=== PATIENT | male | born 1935 | race African-American/Black ===

== ENCOUNTER 2017-12-06 03:54 | Inpatient (IN) ==
[2017-12-06 04:50] LABS: Basophils # 0.1 10*3/uL (0.0-0.2); Basophils % 0.5 % (0.0-0.8); Eosinophils % 0.1 % (0.00-10.9); Hematocrit 37.6 VOL% (42.0-52.0); Hemoglobin 11.9 GM/DL (14.0-18.0); Immature Granulocytes % 0.3 %; Immature Granulocytes Absolute 0.03 #; Lymphocytes # 1.7 10*3/uL (1.4-4.0); Lymphocytes % 18.2 % (21.2-54.2); Mean Corpuscular HGB Conc 31.6 GM/DL (32-36); Mean Corpuscular Hemoglobin 24 PG (27-34); Mean Corpuscular Volume 74.2 FL (87-102); Mean Platelet Volume 12.2 FL (9.6-12.0); Monocytes # 0.9 10*3/uL (0.11-0.8); Monocytes % 9.9 % (1.7-12.7); Neutrophils # 6.5 10*3/uL (1.4-7.4); Platelet Count 231 T/CUMM (130-400); Red Blood Count 5.07 MC/CUMM (3.8-5.5); Red Cell Distribution Width 15.9 % (9.3-17.3); White Blood Count 9.2 T/CUMM (4-12)
[2017-12-06 05:17] LABS: Albumin 3.6 G/DL (3.4-5.0); Calcium 8.5 MG/DL (8.5-10.1); Osmolality,Calculated 277.5 MOS/KG (273-304); PT Patient Result 10.7 SECS; Partial Thromboplastin Time 26.6 SECS (0-40); Thyroid Stimulating Hormone 1.28 uIU/ml (0.358-3.74)
[2017-12-06 05:18] LABS: Troponin I Only 0.075 NG/ML (0.00-0.045)
[2017-12-06 05:28] LABS: Apearance,Urine Clear (Clear); Bilirubin,Urine Negative (Negative); Blood, Urine Negative (Negative); Glucose,Urine (UA) Negative (Negative); Ketones,Urine Negative (Negative); Nitrite,Urine Negative (Negative); Protein,Urine Negative; Urine Color Colorless (Yellow)
[2017-12-06 05:29] LABS: Urine Urobilinogen < 2.0 EU/DL (0.2-1.0)
[2017-12-06] MEDS ORDERED: cloNIDine 0.1 MG TABLET PO STA (06:05)
[2017-12-06] MEDS ORDERED: cloNIDine 0.1 MG TABLET ONE (06:15)
[2017-12-06] MEDS ORDERED: BISACODYL 5 MG TABLET PO PRN (06:17)
[2017-12-06] MEDS ORDERED: DOCUSATE SODIUM 100 MG CAPSULE PO PRN (06:17)
[2017-12-06] MEDS ORDERED: ZALEPLON 5 MG CAPSULE PO PRN (06:17)
[2017-12-06] MEDS ORDERED: ACETAMINOPHEN 325 MG TABLET PO PRN (06:17)
[2017-12-06] MEDS ORDERED: ONDANSETRON 4 MG/2 ML VIAL IV PRN (06:17)
[2017-12-06] MEDS ORDERED: LACTULOSE 20 GM/30 ML UDCUP PO PRN (06:17)
[2017-12-06] MEDS ORDERED: MAGNESIUM SULF RIDER 4 GM in PREMIX 1 EACH IV PRN (06:24)
[2017-12-06] MEDS ORDERED: MAGNESIUM SULF RIDER 2 GM in PREMIX 1 EACH IV PRN ×2 (06:24→14:15)
[2017-12-06] MEDS ORDERED: DILTIAZEM INJ 100 MG in SODIUM CHLORIDE 0.9% 100 ML IV SCH (06:30)
[2017-12-06 06:55] LABS: Risk Ratio 2.88; VLDL CHOLESTEROL 15.2 MG/DL
[2017-12-06] MEDS ORDERED: ENOXAPARIN 40 MG/0.4 ML SYRINGE SUBCUT SCH (07:00)
[2017-12-06] MEDS ORDERED: LABETALOL 20 MG/4 ML SYRINGE IV PRN (07:52)
[2017-12-06] MEDS: ASPIRIN CHEW 81 MG TABLET PO SCH (08:13)
[2017-12-06] MEDS: PANTOPRAZOLE 40 MG TABLET PO SCH (08:13)
[2017-12-06] MEDS: FUROSEMIDE 40 MG/4 ML VIAL IV SCH ×2 (08:13→15:57)
[2017-12-06] MEDS ORDERED: ENOXAPARIN 40 MG/0.4 ML SYRINGE SUBCUT ONE (12:12)
[2017-12-06] MEDS ORDERED: FUROSEMIDE 40 MG TABLET PO SCH (12:30)
[2017-12-06] MEDS: MAGNESIUM OXIDE 400 MG TABLET PO SCH (12:53)
[2017-12-06] MEDS: POTASSIUM CHLORIDE 20 MEQ TABLET PO SCH (12:53)
[2017-12-06] MEDS: CARVEDILOL 12.5 MG TABLET PO SCH ×2 (12:54→21:17)
[2017-12-06] MEDS: DILTIAZEM 30 MG TABLET PO SCH ×3 (12:54→21:17)
[2017-12-06] MEDS ORDERED: POTASSIUM CHLORIDE RIDER 10 MEQ in PREMIX 1 EACH IV PRN (14:15)
[2017-12-06] MEDS ORDERED: SIMVASTATIN 20 MG TABLET PO SCH (21:00)
[2017-12-06] MEDS: cloNIDine 0.1 MG TABLET PO SCH (21:17)
[2017-12-06] MEDS: ATORVASTATIN 80 MG TABLET PO SCH (21:17)
[2017-12-06] MEDS: SERTRALINE 50 MG TABLET PO SCH (21:17)
[2017-12-07 05:02] LABS: Basophils # 0.1 10*3/uL (0.0-0.2); Basophils % 0.7 % (0.0-0.8); Eosinophils # 0.1 10*3/uL (0.0-0.87); Eosinophils % 1.3 % (0.00-10.9); Hematocrit 33.4 VOL% (42.0-52.0); Hemoglobin 10.8 GM/DL (14.0-18.0); Immature Granulocytes % 0.1 %; Immature Granulocytes Absolute 0.01 #; Lymphocytes # 1.8 10*3/uL (1.4-4.0); Lymphocytes % 26.4 % (21.2-54.2); Mean Corpuscular HGB Conc 32.3 GM/DL (32-36); Mean Corpuscular Hemoglobin 24 PG (27-34); Mean Corpuscular Volume 72.6 FL (87-102); Mean Platelet Volume 11.4 FL (9.6-12.0); Monocytes # 0.8 10*3/uL (0.11-0.8); Neutrophils # 4.1 10*3/uL (1.4-7.4); Neutrophils % 59.5 % (38.7-73.9); Platelet Count 206 T/CUMM (130-400); Red Cell Distribution Width 15.9 % (9.3-17.3); White Blood Count 6.9 T/CUMM (4-12)
[2017-12-07 05:36] LABS: Calcium 8.3 MG/DL (8.5-10.1); Potassium 3.8 MMOL/L (3.5-5.1)
[2017-12-07 05:40] LABS: Albumin 2.9 G/DL (3.4-5.0); Bilirubin,Total 0.8 MG/DL (0.2-1.0); Calcium 8.2 MG/DL (8.5-10.1); Potassium 3.8 MMOL/L (3.5-5.1); Total Protein 6.1 G/DL (6.4-8.3)
[2017-12-07 05:47] LABS: Risk Ratio 3.09; VLDL CHOLESTEROL 14.6 MG/DL
[2017-12-07] MEDS ORDERED: diphenhydrAMINE CAP 50 MG CAPSULE PO ONE (07:00)
[2017-12-07] MEDS ORDERED: ENOXAPARIN 80 MG/0.8 ML SYRINGE SUBCUT ONE (07:01)
[2017-12-07] MEDS ORDERED: diphenhydrAMINE CAP 25 MG CAPSULE ONE (07:02)
[2017-12-07] MEDS: ENOXAPARIN 80 MG/0.8 ML SYRINGE SUBCUT SCH ×2 (07:05→10:04)
[2017-12-07] MEDS: DILTIAZEM CD 120 MG CAPSULE PO SCH ×2 (07:05→10:03)
[2017-12-07] MEDS: ASPIRIN CHEW 81 MG TABLET PO SCH ×2 (07:05→10:03)
[2017-12-07] MEDS: CARVEDILOL 12.5 MG TABLET PO SCH ×3 (07:05→20:55)
[2017-12-07] MEDS ORDERED: DIAZEPAM 5 MG TABLET PO ONE (07:30)
[2017-12-07] MEDS ORDERED: NITROGLYCERIN DRIP 50 MG/250 ML BOTTLE IV ONE (07:48)
[2017-12-07] MEDS ORDERED: LIDOCAINE 1% 20 ML VIAL ONE (07:48)
[2017-12-07] MEDS ORDERED: VERAPAMIL 5 MG/2 ML VIAL ONE (07:49)
[2017-12-07] MEDS ORDERED: HYDROmorphone 2 MG/1 ML VIAL ONE (07:52)
[2017-12-07] MEDS ORDERED: MIDAZOLAM 2 MG/2 ML VIAL ONE (07:52)
[2017-12-07] MEDS ORDERED: ADENOSINE 90 MG/30 ML VIAL IV ONE (08:18)
[2017-12-07] MEDS ORDERED: HYDROmorphone 2 MG/1 ML VIAL IV PRN (08:31)
[2017-12-07] MEDS ORDERED: NITROGLYCERIN SL 0.4 MG TABLET SL PRN (08:31)
[2017-12-07] MEDS: FUROSEMIDE 40 MG/4 ML VIAL IV SCH ×2 (10:02→15:52)
[2017-12-07] MEDS: MAGNESIUM OXIDE 400 MG TABLET PO SCH (10:04)
[2017-12-07] MEDS: POTASSIUM CHLORIDE 20 MEQ TABLET PO SCH (10:04)
[2017-12-07] MEDS: PANTOPRAZOLE 40 MG TABLET PO SCH (10:05)
[2017-12-07] MEDS: SERTRALINE 50 MG TABLET PO SCH (20:55)
[2017-12-07] MEDS: APIXABAN 5 MG TABLET PO SCH (20:55)
[2017-12-07] MEDS: cloNIDine 0.1 MG TABLET PO SCH (20:55)
[2017-12-07] MEDS: ATORVASTATIN 80 MG TABLET PO SCH (20:55)
[2017-12-08 06:12] LABS: Calcium 8.4 MG/DL (8.5-10.1); Magnesium 2.2 MG/DL (1.8-2.4); Osmolality,Calculated 280.3 MOS/KG (273-304); Potassium 4.1 MMOL/L (3.5-5.1)
[2017-12-08] MEDS: MAGNESIUM OXIDE 400 MG TABLET PO SCH (08:08)
[2017-12-08] MEDS: CARVEDILOL 12.5 MG TABLET PO SCH (08:08)
[2017-12-08] MEDS: DILTIAZEM CD 120 MG CAPSULE PO SCH (08:08)
[2017-12-08] MEDS: PANTOPRAZOLE 40 MG TABLET PO SCH (08:09)
[2017-12-08] MEDS: ASPIRIN CHEW 81 MG TABLET PO SCH (08:09)
[2017-12-08] MEDS: FUROSEMIDE 40 MG/4 ML VIAL IV SCH (08:09)
[2017-12-08] MEDS: APIXABAN 5 MG TABLET PO SCH (08:09)
[2017-12-08] MEDS: POTASSIUM CHLORIDE 20 MEQ TABLET PO SCH (08:09)
[2017-12-08 12:53] VITALS: BP 130/82
== END 2017-12-08 14:15 | disposition home or self-care (01) | DRG 287 ==
LOC: EDUNIT# → EDBD → N.ED 03:54 → N.EDINP 05:51 → N.TELES 06:10
PROVIDERS: ADMIT Internal Medicine; ATTEND Internal Medicine

== ENCOUNTER 2018-05-02 18:16 | Inpatient (IN) ==
[2018-05-02] MEDS ORDERED: ASPIRIN 325 MG TABLET PO STA (19:01)
[2018-05-02 20:22] LABS: Basophils # 0.1 10*3/uL (0.0-0.2); Basophils % 1.2 % (0.0-0.8); Eosinophils % 0.3 % (0.00-10.9); Hematocrit 32.5 VOL% (42.0-52.0); Hemoglobin 10.9 GM/DL (14.0-18.0); Immature Granulocytes % 0.3 %; Immature Granulocytes Absolute 0.02 #; Lymphocytes # 2.2 10*3/uL (1.4-4.0); Lymphocytes % 32.2 % (21.2-54.2); Mean Corpuscular HGB Conc 33.5 GM/DL (32-36); Mean Corpuscular Hemoglobin 24 PG (27-34); Mean Corpuscular Volume 71.1 FL (87-102); Monocytes # 0.8 10*3/uL (0.11-0.8); Monocytes % 11.3 % (1.7-12.7); NRBC # 0.03 10*3/uL; Neutrophils # 3.7 10*3/uL (1.4-7.4); Neutrophils % 54.7 % (38.7-73.9); Platelet Count 218 T/CUMM (130-400); Red Blood Count 4.57 MC/CUMM (3.8-5.5); Red Cell Distribution Width 16.9 % (9.3-17.3); White Blood Count 6.8 T/CUMM (4-12)
[2018-05-02 20:45] LABS: INR 1.4; PT Patient Result 14.7 SECS
[2018-05-02 20:46] LABS: Albumin 3.7 G/DL (3.4-5.0); Bilirubin,Total 1.5 MG/DL (0.2-1.0); Calcium 8.5 MG/DL (8.5-10.1); Potassium 4.5 MMOL/L (3.5-5.1); Total Protein 6.7 G/DL (6.4-8.3)
[2018-05-02] MEDS ORDERED: FUROSEMIDE 40 MG/4 ML VIAL IV STA (21:27)
[2018-05-02] MEDS ORDERED: METOPROLOL TARTRATE 5 MG/5 ML VIAL IV STA ×2 (21:29→22:55)
[2018-05-02] MEDS ORDERED: CARVEDILOL 3.125 MG TABLET PO STA (22:55)
[2018-05-03] MEDS ORDERED: ONDANSETRON 4 MG/2 ML VIAL IV PRN (04:24)
[2018-05-03] MEDS ORDERED: MORPHINE 4 MG/1 ML VIAL IV PRN (04:24)
[2018-05-03] MEDS ORDERED: DILTIAZEM 50 MG/10 ML VIAL IV ONE (04:24)
[2018-05-03] MEDS ORDERED: metroNIDAZOLE 500 MG/100 ML PREMIX IV ONE (04:41)
[2018-05-03] MEDS ORDERED: CIPROFLOXACIN 400 MG/200 ML PREMIX IV ONE (04:41)
[2018-05-03] MEDS ORDERED: DILTIAZEM 100 MG VIAL.ADD IV ONE (04:42)
[2018-05-03] MEDS: DILTIAZEM CD 120 MG CAPSULE PO SCH ×2 (04:57→12:25)
[2018-05-03] MEDS: metroNIDAZOLE INJ 500 MG in PREMIX 1 EACH IV SCH ×2 (05:15→19:23)
[2018-05-03] MEDS ORDERED: DILTIAZEM INJ 100 MG in SODIUM CHLORIDE 0.9% 100 ML IV SCH (05:30)
[2018-05-03] MEDS: CIPROFLOXACIN INJ 400 MG in PREMIX 1 EACH IV SCH ×2 (06:29→19:23)
[2018-05-03] MEDS ORDERED: APIXABAN 5 MG TABLET PO SCH (08:00)
[2018-05-03] MEDS ORDERED: APIXABAN 5 MG TABLET ONE (08:27)
[2018-05-03] MEDS: CARVEDILOL 12.5 MG TABLET PO SCH ×2 (08:53→21:46)
[2018-05-03] MEDS ORDERED: DOCUSATE SODIUM 100 MG CAPSULE ONE (09:14)
[2018-05-03] MEDS ORDERED: PANTOPRAZOLE 40 MG TABLET PO ONE (09:14)
[2018-05-03] MEDS: LOSARTAN 50 MG TABLET PO SCH (09:58)
[2018-05-03] MEDS: DOCUSATE SODIUM 100 MG CAPSULE PO SCH ×2 (09:58→21:46)
[2018-05-03] MEDS: PANTOPRAZOLE 40 MG TABLET PO SCH (09:58)
[2018-05-03] MEDS ORDERED: DILTIAZEM 30 MG TABLET PO ONE (10:43)
[2018-05-03] MEDS ORDERED: SODIUM CHLORIDE 0.45% 1,000 ML IV SCH (11:00)
[2018-05-03] MEDS ORDERED: MAGNESIUM OXIDE 400 MG TABLET ONE (12:24)
[2018-05-03] MEDS ORDERED: DILTIAZEM CD 120 MG CAPSULE PO ONE (12:24)
[2018-05-03] MEDS: MAGNESIUM OXIDE 400 MG TABLET PO SCH (12:25)
[2018-05-03] MEDS ORDERED: POTASSIUM CHLORIDE 20 MEQ TABLET PO ONE (15:23)
[2018-05-03] MEDS: POTASSIUM CHLORIDE 20 MEQ TABLET PO SCH (15:27)
[2018-05-03 16:51] LABS: Apearance,Urine CLEAR (Clear); Bacteria,Urine Occasional /HPF (Few); Bilirubin,Urine Negative (Negative); Blood, Urine Negative (Negative); Glucose,Urine (UA) Negative (Negative); Hyaline Casts,Urine 4 /LPF (0-3); Ketones,Urine Negative (Negative); Mucus,Urine Occasional /LPF (Occasional); Nitrite,Urine Negative (Negative); Protein,Urine Negative; RBC,Urine 1 /HPF (0-4); Sperm,Urine Occasional /HPF (Negative); Squamous Epithelial Cell,Urine Occasional /HPF (0-10); Urine Color Yellow (Yellow); Urine Specific Gravity 1.016 (1.001-1.035); Urine Urobilinogen < 2.0 EU/DL (0.2-1.0); WBC,Urine 2 /HPF (0-6)
[2018-05-03] MEDS ORDERED: PNEUMOCOCCAL VACCINE (13 VALENT) 0.5 ML SYRINGE IM ONE (17:28)
[2018-05-03] MEDS ORDERED: ATORVASTATIN 80 MG TABLET PO SCH (21:00)
[2018-05-03] MEDS: traZODone 50 MG TABLET PO SCH (21:46)
[2018-05-03] MEDS: SERTRALINE 50 MG TABLET PO SCH (21:46)
[2018-05-04 05:47] LABS: Troponin I Only 0.138 NG/ML (0.00-0.045)
[2018-05-04] MEDS: CIPROFLOXACIN INJ 400 MG in PREMIX 1 EACH IV SCH ×2 (05:48→16:48)
[2018-05-04] MEDS: metroNIDAZOLE INJ 500 MG in PREMIX 1 EACH IV SCH ×2 (05:48→18:45)
[2018-05-04 05:58] LABS: Risk Ratio 2.21; VLDL CHOLESTEROL 11.4 MG/DL
[2018-05-04] MEDS: PANTOPRAZOLE 40 MG TABLET PO SCH (09:41)
[2018-05-04] MEDS: LOSARTAN 50 MG TABLET PO SCH (09:41)
[2018-05-04] MEDS: ACETAMINOPHEN 325 MG TABLET PO PRN (09:41)
[2018-05-04] MEDS: ASPIRIN EC 81 MG TABLET PO SCH (09:42)
[2018-05-04] MEDS: CARVEDILOL 12.5 MG TABLET PO SCH ×2 (09:42→20:57)
[2018-05-04] MEDS: DOCUSATE SODIUM 100 MG CAPSULE PO SCH ×2 (09:42→20:57)
[2018-05-04] MEDS ORDERED: LACTULOSE 20 GM/30 ML UDCUP PO PRN (09:43)
[2018-05-04] MEDS: MAGNESIUM OXIDE 400 MG TABLET PO SCH (12:24)
[2018-05-04] MEDS: DILTIAZEM CD 120 MG CAPSULE PO SCH (12:24)
[2018-05-04 12:48] LABS: Basophils # 0.1 10*3/uL (0.0-0.2); Basophils % 0.9 % (0.0-0.8); Eosinophils # 0.1 10*3/uL (0.0-0.87); Eosinophils % 1.5 % (0.00-10.9); Hemoglobin 10.7 GM/DL (14.0-18.0); Immature Granulocytes % 0.2 %; Immature Granulocytes Absolute 0.01 #; Lymphocytes # 1.6 10*3/uL (1.4-4.0); Lymphocytes % 29.6 % (21.2-54.2); Mean Corpuscular HGB Conc 32.4 GM/DL (32-36); Mean Corpuscular Hemoglobin 24 PG (27-34); Mean Corpuscular Volume 73.2 FL (87-102); Monocytes # 0.8 10*3/uL (0.11-0.8); Monocytes % 15.2 % (1.7-12.7); Neutrophils # 2.8 10*3/uL (1.4-7.4); Neutrophils % 52.6 % (38.7-73.9); Platelet Count 166 T/CUMM (130-400); Red Blood Count 4.51 MC/CUMM (3.8-5.5); Red Cell Distribution Width 17.4 % (9.3-17.3); White Blood Count 5.3 T/CUMM (4-12)
[2018-05-04 13:25] LABS: Calcium 8.6 MG/DL (8.5-10.1); Osmolality,Calculated 273.7 MOS/KG (273-304); Potassium 4.6 MMOL/L (3.5-5.1)
[2018-05-04 14:10] LABS: Hepatitis A Ab IgM Quant 0.27 Index; Hepatitis A Ab IgM Result Negative (Negative); Hepatitis B Core IgM Quant 0.09 Index; Hepatitis B Core IgM Result Negative (Negative); Hepatitis B Surface Ag Quant < 0.10 Index; Hepatitis B Surface Ag Result Negative (Negative); Hepatitis C Virus Ab Quant 0.02 Index; Hepatitis C Virus Ab Result Negative (Negative)
[2018-05-04 14:50] LABS: Hypochromasia 2+
[2018-05-04 14:55] LABS: Tear Drop Cells Few
[2018-05-04 14:57] LABS: Schistocytes Few
[2018-05-04 14:58] LABS: Acanthocytes 1+; Elliptocytes Few; Platelet Estimate Normal; Poikilocytosis 2+
[2018-05-04] MEDS: POTASSIUM CHLORIDE 20 MEQ TABLET PO SCH (15:15)
[2018-05-04] MEDS: GABAPENTIN 100 MG CAPSULE PO SCH ×2 (16:28→20:57)
[2018-05-04] MEDS: SERTRALINE 50 MG TABLET PO SCH (20:57)
[2018-05-04] MEDS: traZODone 50 MG TABLET PO SCH (20:57)
[2018-05-05] MEDS: metroNIDAZOLE INJ 500 MG in PREMIX 1 EACH IV SCH (05:15)
[2018-05-05] MEDS: CIPROFLOXACIN INJ 400 MG in PREMIX 1 EACH IV SCH (05:15)
[2018-05-05 05:48] LABS: Basophils # 0.1 10*3/uL (0.0-0.2); Basophils % 1.2 % (0.0-0.8); Eosinophils # 0.1 10*3/uL (0.0-0.87); Eosinophils % 2.4 % (0.00-10.9); Hematocrit 31.5 VOL% (42.0-52.0); Hemoglobin 10.4 GM/DL (14.0-18.0); Immature Granulocytes % 0.2 %; Immature Granulocytes Absolute 0.01 #; Lymphocytes # 2.3 10*3/uL (1.4-4.0); Mean Corpuscular Hemoglobin 24 PG (27-34); Mean Corpuscular Volume 72.2 FL (87-102); Monocytes # 0.7 10*3/uL (0.11-0.8); Monocytes % 14.2 % (1.7-12.7); Neutrophils # 1.9 10*3/uL (1.4-7.4); Platelet Count 267 T/CUMM (130-400); Red Blood Count 4.36 MC/CUMM (3.8-5.5); Red Cell Distribution Width 17.2 % (9.3-17.3)
[2018-05-05 06:17] LABS: Burr Cells Slight; Calcium 8.4 MG/DL (8.5-10.1); Elliptocytes Few; Eosinophils 2 % (0-10); Hypochromasia Slight; Lymphocytes 52 % (20-55); Nucleated Red Blood Cells 1 (0-5); Osmolality,Calculated 279.3 MOS/KG (273-304); Platelet Estimate Adequate; Potassium 4.4 MMOL/L (3.5-5.1); Segmented Neutrophils 34 % (50-85); Total Cells Counted 100
[2018-05-05 06:18] LABS: Atypical Lymphocytes Few
[2018-05-05] MEDS: CARVEDILOL 12.5 MG TABLET PO SCH ×2 (07:48→20:19)
[2018-05-05] MEDS: GABAPENTIN 100 MG CAPSULE PO SCH ×3 (08:43→20:18)
[2018-05-05] MEDS: LOSARTAN 50 MG TABLET PO SCH (08:43)
[2018-05-05] MEDS: PANTOPRAZOLE 40 MG TABLET PO SCH (08:44)
[2018-05-05] MEDS: DOCUSATE SODIUM 100 MG CAPSULE PO SCH ×2 (08:44→20:18)
[2018-05-05] MEDS: ASPIRIN EC 81 MG TABLET PO SCH (08:44)
[2018-05-05] MEDS: APIXABAN 5 MG TABLET PO SCH ×2 (10:21→20:19)
[2018-05-05] MEDS: DILTIAZEM CD 120 MG CAPSULE PO SCH (11:13)
[2018-05-05] MEDS: MAGNESIUM OXIDE 400 MG TABLET PO SCH (11:13)
[2018-05-05 12:42] LABS: Hematocrit 34.2 VOL% (42.0-52.0)
[2018-05-05] MEDS: POTASSIUM CHLORIDE 20 MEQ TABLET PO SCH (15:53)
[2018-05-05] MEDS: traZODone 50 MG TABLET PO SCH (20:18)
[2018-05-05] MEDS: SERTRALINE 50 MG TABLET PO SCH (20:18)
[2018-05-06 06:14] LABS: Basophils # 0.1 10*3/uL (0.0-0.2); Basophils % 0.7 % (0.0-0.8); Eosinophils # 0.2 10*3/uL (0.0-0.87); Eosinophils % 2.2 % (0.00-10.9); Hematocrit 33.8 VOL% (42.0-52.0); Hemoglobin 11.1 GM/DL (14.0-18.0); Immature Granulocytes % 0.1 %; Immature Granulocytes Absolute 0.01 #; Lymphocytes # 2.1 10*3/uL (1.4-4.0); Lymphocytes % 31.1 % (21.2-54.2); Mean Corpuscular HGB Conc 32.8 GM/DL (32-36); Mean Corpuscular Hemoglobin 24 PG (27-34); Mean Corpuscular Volume 71.8 FL (87-102); Monocytes # 0.8 10*3/uL (0.11-0.8); Monocytes % 11.1 % (1.7-12.7); NRBC # 0.02 10*3/uL; Neutrophils # 3.7 10*3/uL (1.4-7.4); Neutrophils % 54.8 % (38.7-73.9); Platelet Count 294 T/CUMM (130-400); Red Blood Count 4.71 MC/CUMM (3.8-5.5); Red Cell Distribution Width 18.2 % (9.3-17.3); White Blood Count 6.8 T/CUMM (4-12)
[2018-05-06] MEDS: ACETAMINOPHEN 325 MG TABLET PO PRN (06:33)
[2018-05-06 06:44] LABS: Calcium 8.7 MG/DL (8.5-10.1); Osmolality,Calculated 277.4 MOS/KG (273-304); Potassium 4.8 MMOL/L (3.5-5.1)
[2018-05-06 06:55] LABS: Burr Cells Slight; Hypochromasia 1+; Ovalocytes Slight; Platelet Estimate Adequate
[2018-05-06] MEDS: GABAPENTIN 100 MG CAPSULE PO SCH (08:47)
[2018-05-06] MEDS: DOCUSATE SODIUM 100 MG CAPSULE PO SCH (08:47)
[2018-05-06] MEDS: CARVEDILOL 12.5 MG TABLET PO SCH (08:47)
[2018-05-06] MEDS: ASPIRIN EC 81 MG TABLET PO SCH (08:47)
[2018-05-06] MEDS: PANTOPRAZOLE 40 MG TABLET PO SCH (08:47)
[2018-05-06] MEDS: LOSARTAN 50 MG TABLET PO SCH (08:47)
[2018-05-06] MEDS: APIXABAN 5 MG TABLET PO SCH (08:47)
[2018-05-06 11:39] VITALS: BP 140/94
[2018-05-06] MEDS: MAGNESIUM OXIDE 400 MG TABLET PO SCH (12:22)
[2018-05-06] MEDS: DILTIAZEM CD 120 MG CAPSULE PO SCH (12:22)
== END 2018-05-06 14:12 | disposition home or self-care (01) | DRG 309 ==
LOC: EDUNIT# → EDBD → N.ED 18:16 → N.EDINP 23:33 → N.2W 05-03 17:21 → N.TELES 05-03 18:15
PROVIDERS: ADMIT Internal Medicine Infectious Disease; ATTEND Internal Medicine Infectious Disease

== ENCOUNTER 2018-05-13 13:38 | Inpatient (IN) ==
[2018-05-13] MEDS ORDERED: traZODone 50 MG TABLET PO PRN (15:37)
[2018-05-13] MEDS ORDERED: DOCUSATE SODIUM 100 MG CAPSULE PO PRN (15:37)
[2018-05-13] MEDS ORDERED: ONDANSETRON 4 MG/2 ML VIAL IV PRN (15:37)
[2018-05-13] MEDS: FUROSEMIDE 40 MG/4 ML VIAL IV SCH (17:50)
[2018-05-13] MEDS ORDERED: ALBUTEROL/IPRATROPIUM 3 ML NEB RESP TX PRN (18:14)
[2018-05-13 18:28] LABS: Calcium 9.2 MG/DL (8.5-10.1); Potassium 4.1 MMOL/L (3.5-5.1)
[2018-05-13] MEDS: ALBUTEROL/IPRATROPIUM 3 ML NEB RESP TX SCH ×2 (19:16→23:54)
[2018-05-13] MEDS ORDERED: CARVEDILOL 12.5 MG TABLET PO SCH (20:00)
[2018-05-13] MEDS: traZODone 50 MG TABLET PO SCH (20:44)
[2018-05-13] MEDS: GABAPENTIN 100 MG CAPSULE PO SCH (20:44)
[2018-05-13] MEDS: CARVEDILOL 25 MG TABLET PO SCH (20:45)
[2018-05-13] MEDS: SERTRALINE 50 MG TABLET PO SCH (20:45)
[2018-05-13] MEDS: ATORVASTATIN 80 MG TABLET PO SCH (20:45)
[2018-05-13] MEDS ORDERED: ENOXAPARIN 40 MG/0.4 ML SYRINGE SUBCUT SCH (21:00)
[2018-05-14 05:11] LABS: Basophils # 0.1 10*3/uL (0.0-0.2); Eosinophils # 0.1 10*3/uL (0.0-0.87); Hematocrit 31.2 VOL% (42.0-52.0); Hemoglobin 10.7 GM/DL (14.0-18.0); Immature Granulocytes % 0.2 %; Immature Granulocytes Absolute 0.01 #; Lymphocytes # 2.6 10*3/uL (1.4-4.0); Lymphocytes % 43.3 % (21.2-54.2); Mean Corpuscular HGB Conc 34.3 GM/DL (32-36); Mean Corpuscular Hemoglobin 24 PG (27-34); Mean Corpuscular Volume 69.3 FL (87-102); Monocytes # 0.9 10*3/uL (0.11-0.8); Monocytes % 14.9 % (1.7-12.7); Neutrophils # 2.4 10*3/uL (1.4-7.4); Neutrophils % 39.6 % (38.7-73.9); Platelet Count 289 T/CUMM (130-400); Red Cell Distribution Width 17.5 % (9.3-17.3)
[2018-05-14 05:36] LABS: Osmolality,Calculated 274.7 MOS/KG (273-304); Potassium 3.5 MMOL/L (3.5-5.1); Thyroid Stimulating Hormone 1.28 uIU/ml (0.358-3.74)
[2018-05-14] MEDS ORDERED: MAGNESIUM SULF RIDER 2 GM in PREMIX 1 EACH IV PRN (06:01)
[2018-05-14] MEDS ORDERED: MAGNESIUM SULF RIDER 4 GM in PREMIX 1 EACH IV PRN (06:01)
[2018-05-14] MEDS ORDERED: POTASSIUM CHLORIDE 20 MEQ TABLET PO PRN (06:01)
[2018-05-14] MEDS: FUROSEMIDE 40 MG/4 ML VIAL IV SCH ×2 (07:19→16:01)
[2018-05-14] MEDS: ALBUTEROL/IPRATROPIUM 3 ML NEB RESP TX SCH ×3 (07:31→19:56)
[2018-05-14] MEDS: METOCLOPRAMIDE 10 MG TABLET PO SCH ×2 (08:28→16:01)
[2018-05-14] MEDS: CARVEDILOL 25 MG TABLET PO SCH ×2 (08:29→21:07)
[2018-05-14] MEDS: PANTOPRAZOLE 40 MG TABLET PO SCH (08:29)
[2018-05-14] MEDS: GABAPENTIN 100 MG CAPSULE PO SCH ×3 (08:29→21:07)
[2018-05-14] MEDS: LOSARTAN 50 MG TABLET PO SCH (08:29)
[2018-05-14] MEDS: APIXABAN 5 MG TABLET PO SCH ×2 (08:30→16:01)
[2018-05-14] MEDS: POTASSIUM CHLORIDE 20 MEQ TABLET PO SCH ×2 (09:42→21:07)
[2018-05-14] MEDS: DILTIAZEM CD 120 MG CAPSULE PO SCH (13:18)
[2018-05-14] MEDS: ATORVASTATIN 80 MG TABLET PO SCH (21:07)
[2018-05-14] MEDS: SERTRALINE 50 MG TABLET PO SCH (21:08)
[2018-05-14] MEDS: traZODone 50 MG TABLET PO SCH (21:08)
[2018-05-15] MEDS: ALBUTEROL/IPRATROPIUM 3 ML NEB RESP TX SCH ×4 (00:38→19:22)
[2018-05-15 05:42] LABS: Calcium 7.8 MG/DL (8.5-10.1); Osmolality,Calculated 277.5 MOS/KG (273-304); Potassium 3.9 MMOL/L (3.5-5.1)
[2018-05-15] MEDS: APIXABAN 5 MG TABLET PO SCH ×2 (07:36→16:21)
[2018-05-15] MEDS: METOCLOPRAMIDE 10 MG TABLET PO SCH ×2 (07:36→16:21)
[2018-05-15] MEDS: FUROSEMIDE 40 MG/4 ML VIAL IV SCH (07:36)
[2018-05-15] MEDS: ACETAMINOPHEN 325 MG TABLET PO PRN (07:41)
[2018-05-15] MEDS ORDERED: NITROGLYCERIN SL 0.4 MG TABLET SL ONE (08:00)
[2018-05-15] MEDS: LOSARTAN 50 MG TABLET PO SCH (08:42)
[2018-05-15] MEDS: POTASSIUM CHLORIDE 20 MEQ TABLET PO SCH ×2 (08:42→22:17)
[2018-05-15] MEDS: GABAPENTIN 100 MG CAPSULE PO SCH ×3 (08:42→22:16)
[2018-05-15] MEDS: CARVEDILOL 25 MG TABLET PO SCH ×2 (08:42→22:16)
[2018-05-15] MEDS: PANTOPRAZOLE 40 MG TABLET PO SCH (08:42)
[2018-05-15] MEDS: DILTIAZEM CD 120 MG CAPSULE PO SCH (12:33)
[2018-05-15] MEDS: FUROSEMIDE 40 MG TABLET PO SCH (16:21)
[2018-05-15] MEDS: traZODone 50 MG TABLET PO SCH (22:16)
[2018-05-15] MEDS: ATORVASTATIN 80 MG TABLET PO SCH (22:16)
[2018-05-15] MEDS: SERTRALINE 50 MG TABLET PO SCH (22:17)
[2018-05-16] MEDS: ALBUTEROL/IPRATROPIUM 3 ML NEB RESP TX SCH ×3 (00:06→13:30)
[2018-05-16] MEDS: ACETAMINOPHEN 325 MG TABLET PO PRN (04:19)
[2018-05-16 05:31] LABS: Calcium 8.1 MG/DL (8.5-10.1); Osmolality,Calculated 283.1 MOS/KG (273-304); Potassium 4.1 MMOL/L (3.5-5.1)
[2018-05-16] MEDS: FUROSEMIDE 40 MG TABLET PO SCH ×2 (09:17→17:05)
[2018-05-16] MEDS: LOSARTAN 50 MG TABLET PO SCH (09:17)
[2018-05-16] MEDS: METOCLOPRAMIDE 10 MG TABLET PO SCH ×2 (09:17→17:04)
[2018-05-16] MEDS: CARVEDILOL 25 MG TABLET PO SCH (09:17)
[2018-05-16] MEDS: POTASSIUM CHLORIDE 20 MEQ TABLET PO SCH (09:17)
[2018-05-16] MEDS: APIXABAN 5 MG TABLET PO SCH ×2 (09:17→17:04)
[2018-05-16] MEDS: PANTOPRAZOLE 40 MG TABLET PO SCH (09:17)
[2018-05-16] MEDS: GABAPENTIN 100 MG CAPSULE PO SCH ×2 (09:17→17:04)
[2018-05-16] MEDS: DILTIAZEM CD 120 MG CAPSULE PO SCH (14:00)
[2018-05-16 16:14] VITALS: BP 129/84
== END 2018-05-16 18:51 | disposition home or self-care (01) | DRG 293 ==
LOC: EDUNIT# → EDBD → N.ED 13:38 → SUATTDRO 14:12 → N.EDINP 14:12 → N.2W 14:53 → N.TELES 15:58
PROVIDERS: ADMIT Internal Medicine; ATTEND Internal Medicine

== ENCOUNTER 2018-05-27 20:08 | Inpatient (IN) ==
[2018-06-01 16:51] VITALS: BP 135/84
== END 2018-06-01 18:08 | disposition home health service (06) | DRG 378 ==
LOC: N.CC 22:03 → SUATTDRO 22:03 → N.4E 05-31 15:27
PROVIDERS: ADMIT Internal Medicine; ATTEND Internal Medicine